=== PATIENT | male | born 1980 | race Caucasian/White ===

== ENCOUNTER 2018-07-22 17:23 | Inpatient (IN) | payer OTHER ==
[2018-07-22] MEDS ORDERED: LIDOCAINE 1% INJ-PF (10 MG/ML) 30 ML SDV INJ ONE (20:58)
[2018-07-22] MEDS ORDERED: NORMAL SALINE 1000 ML 1,000 ML IV ONE (21:00)
[2018-07-22 21:34] LABS: HEMATOCRIT 36.8 % (37.9-51.0); HEMOGLOBIN 12.8 g/dL (13.5-17.0); MEAN CORPUSCULAR HEMOGLOBIN 28.4 pg (27.0-33.4); MEAN CORPUSCULAR HGB CONC 34.8 g/dL (32.0-36.0); MEAN CORPUSCULAR VOLUME 82 fl (80-97); WHITE BLOOD COUNT 18.2 10^3/uL (4.0-10.5)
[2018-07-22 21:48] LABS: ALANINE AMINOTRANSFERASE 36 U/L (21-72); ALBUMIN 3.8 g/dL (3.5-5.0); ALKALINE PHOSPHATASE 165 U/L (38-126); ANION GAP 16 (5-19); ASPARTATE AMINO TRANSFERASE 33 U/L (17-59); BILIRUBIN,DIRECT 0.4 mg/dL (0.0-0.4); BILIRUBIN,TOTAL 0.8 mg/dL (0.2-1.3); BLOOD UREA NITROGEN 8 mg/dL (7-20); CALCIUM 9.2 mg/dL (8.4-10.2); CARBON DIOXIDE 21 mmol/L (22-30); CHLORIDE 92 mmol/L (98-107); GLUCOSE 329 mg/dL (75-110); POTASSIUM 3.8 mmol/L (3.6-5.0); SODIUM 129.1 mmol/L (137-145); TOTAL PROTEIN 7.6 g/dL (6.3-8.2)
[2018-07-22 21:51] LABS: ABSOLUTE LYMPHOCYTES# (MANUAL) 1.6 10^3/uL (0.5-4.7); ABSOLUTE MONOCYTES # (MANUAL) 1.6 10^3/uL (0.1-1.4); ABSOLUTE NEUTROPHILS# (MANUAL) 14.9 10^3/uL (1.7-8.2); BAND NEUTROPHILS % (MANUAL) 3 % (3-5); BASOPHILS % (MANUAL) 0 % (0-2); EOSINOPHILS % (MANUAL) 0 % (0-6); LYMPHOCYTES % (MANUAL) 9 % (13-45); MONOCYTES % (MANUAL) 9 % (3-13); SEGMENTED NEUTROPHILS % (MAN) 79 % (42-78); TOTAL CELLS COUNTED 100
[2018-07-22 21:53] LABS: ANISOCYTOSIS SLIGHT; PLATELET CLUMPS PRESENT; POIKILOCYTOSIS SLIGHT; POLYCHROMASIA SLIGHT; TEAR DROP CELLS SLIGHT; TOXIC VACUOLATION PRESENT
[2018-07-22 21:54] LABS: PLATELET COMMENT ADEQUATE; PLATELET COUNT 345 10^3/uL (150-450)
[2018-07-22] MEDS ORDERED: VANCOMYCIN HCL INJ 1000 MG VIAL IV ONE (22:00)
[2018-07-22] MEDS ORDERED: DEXTROSE 50%-WATER 25 GM/50 ML DISP.SYRIN IV PRN ×2 (22:02)
[2018-07-22] MEDS ORDERED: GLUCAGON,HUMAN RECOMB 1 MG INJ IM PRN (22:02)
[2018-07-22] MEDS ORDERED: DEXTROSE 40% GEL 15 GM TUBE PO PRN ×2 (22:02)
[2018-07-22] MEDS ORDERED: KETOROLAC TROMETHAMINE INJ/PF 30 MG/1 ML SDV IV PRN (22:03)
[2018-07-22] MEDS ORDERED: HYDRALAZINE HCL INJ/PF 20 MG/1 ML SDV IV PRN (22:03)
[2018-07-22] MEDS ORDERED: ACETAMINOPHEN 325 MG TABLET PO PRN (22:03)
[2018-07-22] MEDS ORDERED: VANCOMYCIN HCL 1,500 MG in DEXTROSE 5%-WATER 250 ML IV ONE (22:05)
--- NOTE | 2018-07-22 22:05 | ER Document Report ---
ED General - General Chief Complaint: Abscess Stated Complaint: ABSCESS ON BACK Time Seen by Provider: 07/22/18 20:57 Mode of Arrival: Ambulatory Information source: Patient TRAVEL OUTSIDE OF THE [place] IN LAST 30 DAYS: No - HPI Patient complains to provider of: Complicated back abscess Onset: Other - 3 to 4 days Onset/Duration: Gradual, Persistent Quality of pain: Sharp Severity: Severe Pain Level: 5 Associated symptoms: denies: Chills, Fever, Nausea, Vomiting Exacerbated by: Denies Relieved by: Denies Similar symptoms previously: No Recently seen / treated by doctor: No Notes: 37-year-old male with history of obesity and type 2 diabetes coming in [facility] to have incision and drainage of an abscess to the upper part of his back. He states the abscess started developing 2 to 3 days ago. He does not comment about any history of fevers or chills nausea or vomiting. He states his sugars have been running between the mid 100s to the mid 200s. - Related Data Allergies/Adverse Reactions: No Known Allergies Allergy (Unverified 07/22/18 17:29) Past Medical History - General Information source: Patient - Social History Smoking Status: Unknown if Ever Smoked Family History: Reviewed & Not Pertinent Patient has suicidal ideation: No Patient has homicidal ideation: No Renal/ Medical History: Denies: Hx Peritoneal Dialysis Review of Systems - Review of Systems Notes: Constitutional: No fevers. No chills. EENT: No eye redness. No eye pain. No ear pain. No sore throat. Cardiovascular: No chest pain. No palpitations. Respiratory: No cough. No shortness of breath. No respiratory distress. Gastrointestinal: No abdominal pain. No nausea, vomiting, or diarrhea. Genitourinary: Atraumatic. No lesions. No pain. No discharge. Musculoskeletal: Atraumatic. No swelling. No deformities. Skin: Positive for large abscess to the upper back Lymphatic: No swollen lymph nodes. Neurologic: No headache. No syncope. Psychiatric: No suicidal or homicidal ideation. Physical Exam - Vital signs Vitals: Temp Pulse Resp BP Pulse Ox 98.1 F 137 H 18 137/82 H 97 07/22/18 17:39 07/22/18 17:39 07/22/18 17:39 07/22/18 17:39 07/22/18 17:39 - Notes Notes: General: Well-developed, well-nourished. In no acute distress. Non-toxic appearing. Cardiac: Well-perfused. Regular rate and rhythm. No murmurs, rubs, or gallops. Pulmonary: No respiratory distress. No cyanosis. Bilateral lung fiels are clear to auscultation. Abdominal: Non-distended. Non-rigid. Bowels sounds are present in all four quadrants. No guarding or rebound. HEENT: Head is atraumatic. Conjunctivae not reddened. No tearing. PERRL. EOMI. Orbits atraumatic. No periorbital swelling or erythema. Oropharynx is without erythema, swelling, or exudates. Neck: Supple. No adenopathy. No meningismus. Dermatologic: 18 cm x 15 cm abscess to the upper back to the base of the neck. Extensive induration. Actively draining purulent foul-smelling drainage. Chest: Atraumatic. No chest wall tenderness to palpation. Musculoskeletal: Moves all extremities well. No range of motion deficits. no muscular or joint tenderness. No paraspinal muscle tenderness. no midline spinal tenderness or step-off. Genitourinary: Examination deferred Neurologic: No gross neurologic deficits. Psychiatric: Normal mood. Course - Re-evaluation Re-evalutation: 07/22/18 22:09 Incision and drainage procedure was done per note. The abscess is just too extensive to drain in the emergency department. General surgery was consulted. He agreed to the admission as long as medicine manage the patient's chronic medical problems. - Vital Signs Vital signs: Temp Pulse Resp BP Pulse Ox 98.1 F 118 H 18 137/82 H 97 07/22/18 17:39 07/22/18 21:00 07/22/18 17:39 07/22/18 17:39 07/22/18 17:39 - Laboratory Result Diagrams: 07/22/18 21:18 07/22/18 21:18 Laboratory results interpreted by me: 07/22/18 07/22/18 21:18 21:18 WBC 18.2 H Hgb 12.8 L Hct 36.8 L Seg Neuts % (Manual) 79 H Lymphocytes % (Manual) 9 L Abs Neuts (Manual) 14.9 H Abs Monocytes (Manual) 1.6 H Sodium 129.1 L Chloride 92 L Carbon Dioxide 21 L Glucose 329 H Alkaline Phosphatase 165 H Procedures - Incision and Drainage Upper Back Time completed: 22:10 Type: Complex Anesthetic type: 1% Lidocaine mL's of anesthetic: 10 Blade size: 11 I&D procedure: Shurclens applied Incision Method: Incision made by scalpel Amount/type of drainage: greater than 50 cc jorge purulent drainage. Notes: 07/22/18 22:11 Tolerated procedure well Discharge - Discharge Clinical Impression: Complicated abscess, Hyperglycemia, Hyponatremia Condition: Stable Disposition: ADMITTED INPATIENT Admitting Provider: Surgicalist - DR GARCIA Unit Admitted: Surgical Floor
[2018-07-22] MEDS ORDERED: VANCOMYCIN HCL 0 MG in DEXTROSE 5%-WATER 250 ML IV NR (22:15)
[2018-07-22] MEDS ORDERED: VANCOMYCIN HCL INJ 1000 MG VIAL IV PRN (22:26)
[2018-07-22] MEDS ORDERED: VANCOMYCIN HCL 2,000 MG in DEXTROSE 5%-WATER 500 ML IV ONE (22:30)
--- NOTE | 2018-07-22 22:35 | PDOC H&P ---
History of Present Illness Patient complains of: Upper back pain and drainage History of Present Illness: ALEENA JOHNSON is a 37 year old male with diabetes who noticed swelling with redness at his upper mid back about 5 days ago. The following day it had purulent drainage. Patient has been experiencing some chills but no fever. He was due to be seen at the [facility] but with the condition worsening he came into the ER tonight. He denies any prior history of problems in this area. Patient underwent an incision and drainage in the ER by the ER physician with drainage of copious amount of pus. ER physician was concerned that the infectious process was deeper and that he could not safely debride in the ER. Past Medical History Endocrine Medical History: Reports: Diabetes Mellitus Type 2 Past Surgical History Past Surgical History: Reports: None Social History Smoking Status: Never Smoker Frequency of Alcohol Use: Rare Hx Recreational Drug Use: No Family History Family History: Reviewed & Not Pertinent Parental Family History Reviewed: Yes Children Family History Reviewed: Yes Sibling(s) Family History Reviewed.: Yes Medication/Allergy Allergies/Adverse Reactions: No Known Allergies Allergy (Unverified 07/22/18 17:29) Physical Exam Vital Signs: Temp Pulse Resp BP Pulse Ox 98.1 F 118 H 18 137/82 H 97 07/22/18 17:39 07/22/18 21:00 07/22/18 17:39 07/22/18 17:39 07/22/18 17:39 Intake & Output 07/21/18 07/22/18 07/23/18 06:59 06:59 06:59 Weight 119.3 kg General appearance: PRESENT: no acute distress, cooperative Eye exam: PRESENT: conjunctiva pink Neck exam: PRESENT: other - Supple with no tenderness and no masses Respiratory exam: PRESENT: clear to auscultation priscilla Cardiovascular exam: PRESENT: tachycardia GI/Abdominal exam: PRESENT: other - Soft, nondistended nontender to palpation. Neurological exam: PRESENT: alert, awake Psychiatric exam: PRESENT: appropriate affect Skin exam: PRESENT: other - Upper back with right red erythema and induration with a surgical incision which drainage of purulent fluid. The area of the erythema measuring about 12 cm wide. Results Laboratory Results: 07/22/18 21:18 07/22/18 21:18 07/22/18 07/22/18 21: 21:18 WBC 18.2 H RBC 4.50 Hgb 12.8 L Hct 36.8 L MCV 82 MCH 28.4 MCHC 34.8 RDW 14.0 Plt Count 345 Seg Neutrophils % Not Reportable Lymphocytes % Not Reportable Monocytes % Not Reportable Eosinophils % Not Reportable Basophils % Not Reportable Absolute Neutrophils Not Reportable Absolute Lymphocytes Not Reportable Absolute Monocytes Not Reportable Absolute Eosinophils Not Reportable Absolute Basophils Not Reportable Sodium 129.1 L Potassium 3.8 Chloride 92 L Carbon Dioxide 21 L Anion Gap 16 BUN 8 Creatinine 0.69 Est GFR ( Amer) > 60 Est GFR (Non-Af Amer) > 60 Glucose 329 H Calcium 9.2 Total Bilirubin 0.8 AST 33 ALT 36 Alkaline Phosphatase 165 H Total Protein 7.6 Albumin 3.8 Assessment & Plan - Diagnosis (1) Complicated abscess Is this a current diagnosis for this admission?: Yes Plan: Patient has undergone initial drainage in the ER with drainage of copious amount of pus as per the ER physician. The area would benefit from an excisional debridement in the operating room. This may very well be an infected giant sebaceous cyst. The bright color suggest MRSA. We will plan to admit the patient placed on IV antibiotics and will plan excisional debridement in the operating room tomorrow morning. Will consult hospitalist to assist in management of this diabetic patient.
[2018-07-22] MEDS ORDERED: ERTAPENEM SODIUM INJ 1 GM VIAL IV PRN (22:41)
[2018-07-22] MEDS ORDERED: ERTAPENEM SODIUM 1 GM in NORMAL SALINE 50 ML IV ONE (23:00)
--- NOTE | 2018-07-23 05:15 | PDOC CONSULTATION ---
Consultation Consult Date: 07/22/18 Attending physician:: NEREIDA GARCIA Consult reason:: Diabetes, History of Present Illness Admission Date/PCP: 07/22/18 22:27 Patient complains of: Fever, abscess History of Present Illness: ALEENA JOHNSON is a 37 year old male with a past medical history of morbid obesity and insulin-dependent diabetes presents with 3 days of swelling and pain to the upper back. In the emergency room he is found to have a large 19 x 13 cm fluctuant abscess requiring I&D at bedside but requires extensive OR debridement. He is referred to the surgical list for admission. Patient admits previous abscess to the posterior neck greater than 1 year ago fully resolved. He denies recent antibiotic use. He is unaware of his last A1c but Accu-Cheks from home average 150. Patient denies recent change of medication. Past Medical History Cardiac Medical History: Reports: None Pulmonary Medical History: Reports: None Endocrine Medical History: Reports: Diabetes Mellitus Type 2 Past Surgical History Past Surgical History: Reports: None Social History Information Source: Patient, [facility] Smoking Status: Never Smoker Frequency of Alcohol Use: Rare Hx Recreational Drug Use: No - Advance Directive Resuscitation Status: Full Code Family History Family History: Hypertension Parental Family History Reviewed: Yes Children Family History Reviewed: Yes Sibling(s) Family History Reviewed.: Yes Medication/Allergy Allergies/Adverse Reactions: No Known Allergies Allergy (Unverified 07/22/18 17:29) Review of Systems Constitutional: ABSENT: chills, fever(s), headache(s), weight gain, weight loss Eyes: ABSENT: visual disturbances Ears: ABSENT: hearing changes Cardiovascular: ABSENT: chest pain, dyspnea on exertion, edema, orthropnea, palpitations Respiratory: ABSENT: cough, hemoptysis Gastrointestinal: ABSENT: abdominal pain, constipation, diarrhea, hematemesis, hematochezia, nausea, vomiting Genitourinary: ABSENT: dysuria, hematuria Musculoskeletal: ABSENT: joint swelling Integumentary: ABSENT: rash, wounds Neurological: ABSENT: abnormal gait, abnormal speech, confusion, dizziness, focal weakness, syncope Psychiatric: ABSENT: anxiety, depression, homidical ideation, suicidal ideation Endocrine: ABSENT: cold intolerance, heat intolerance, polydipsia, polyuria Hematologic/Lymphatic: ABSENT: easy bleeding, easy bruising Physical Exam Vital Signs: Temp Pulse Resp BP Pulse Ox 98.3 F 117 H 20 132/74 H 100 07/23/18 01:31 07/23/18 01:31 07/23/18 01:31 07/23/18 01:31 07/23/18 01:31 Intake & Output 07/21/18 07/22/18 07/23/18 11:59 11:59 11:59 Intake Total 1546 Balance 1546 Weight 119.3 kg General appearance: PRESENT: cooperative, mild distress, morbidly obese. ABSENT: disheveled Head exam: PRESENT: atraumatic, normocephalic Eye exam: PRESENT: conjunctiva pink, EOMI, PERRLA. ABSENT: scleral icterus Ear exam: PRESENT: normal external ear exam Mouth exam: PRESENT: moist, tongue midline Neck exam: ABSENT: carotid bruit, JVD, lymphadenopathy, thyromegaly Respiratory exam: PRESENT: clear to auscultation priscilla. ABSENT: rales, rhonchi, wheezes Cardiovascular exam: PRESENT: RRR. ABSENT: diastolic murmur, rubs, systolic murmur Pulses: PRESENT: normal dorsalis pedis pul Vascular exam: PRESENT: normal capillary refill GI/Abdominal exam: PRESENT: normal bowel sounds, soft. ABSENT: distended, guarding, mass, organolmegaly, rebound, tenderness Rectal exam: PRESENT: deferred Extremities exam: PRESENT: full ROM. ABSENT: calf tenderness, clubbing, pedal edema Neurological exam: PRESENT: alert, awake, oriented to person, oriented to place, oriented to time, oriented to situation, CN II-XII grossly intact. ABSENT: motor sensory deficit Psychiatric exam: PRESENT: appropriate affect, normal mood. ABSENT: homicidal ideation, suicidal ideation Skin exam: PRESENT: dry, intact, warm. ABSENT: cyanosis, rash Adult Front & Back Image: 1 - 19 x 13 cm abscess with proximal cellulitis Results Laboratory Results: 07/22/18 21:18 07/22/18 21:18 07/22/18 07/22/18 21:18 21:18 WBC 18.2 H RBC 4.50 Hgb 12.8 L Hct 36.8 L MCV 82 MCH 28.4 MCHC 34.8 RDW 14.0 Plt Count 345 Seg Neutrophils % Not Reportable Lymphocytes % Not Reportable Monocytes % Not Reportable Eosinophils % Not Reportable Basophils % Not Reportable Absolute Neutrophils Not Reportable Absolute Lymphocytes Not Reportable Absolute Monocytes Not Reportable Absolute Eosinophils Not Reportable Absolute Basophils Not Reportable Sodium 129.1 L Potassium 3.8 Chloride 92 L Carbon Dioxide 21 L Anion Gap 16 BUN 8 Creatinine 0.69 Est GFR ( Amer) > 60 Est GFR (Non-Af Amer) > 60 Glucose 329 H Calcium 9.2 Total Bilirubin 0.8 AST 33 ALT 36 Alkaline Phosphatase 165 H Total Protein 7.6 Albumin 3.8 Assessment and Plan - Diagnosis (1) Complicated abscess Is this a current diagnosis for this admission?: Yes Plan: Surgical admission for debridement, high risk for MRSA vancomycin initiated. Follow-up CBC, blood and wound culture (2) Diabetes Is this a current diagnosis for this admission?: Yes Plan: Resume outpatient regiment with Humalog sliding scale, follow-up A1c (3) Hyponatremia Is this a current diagnosis for this admission?: Yes Plan: Most likely secondary to pain, follow-up chemistry (4) Morbid obesity Is this a current diagnosis for this admission?: Yes Plan: Morbid obesity will evaluate for metabolic cause with evaluation of thyroid function and dietitian consultation - Time Time Spent with patient: 25-34 minutes - Inpatient Certification Medical Necessity: Need Close Monitoring Due to Risk of Patient Decompensation
[2018-07-23] MEDS ORDERED: VANCOMYCIN HCL 2,000 MG in DEXTROSE 5%-WATER 500 ML IV SCH (06:00)
[2018-07-23 06:23] LABS: HEMATOCRIT 31.8 % (37.9-51.0); HEMOGLOBIN 10.9 g/dL (13.5-17.0); MEAN CORPUSCULAR HEMOGLOBIN 28.4 pg (27.0-33.4); MEAN CORPUSCULAR HGB CONC 34.3 g/dL (32.0-36.0); MEAN CORPUSCULAR VOLUME 83 fl (80-97); PLATELET COUNT 237 10^3/uL (150-450); RED BLOOD COUNT 3.84 10^6/uL (4.35-5.55); RED CELL DISTRIBUTION WIDTH 13.9 % (11.5-14.0); WHITE BLOOD COUNT 11.6 10^3/uL (4.0-10.5)
[2018-07-23] MEDS: HEPARIN SOD (PORCINE) 5,000 UNIT/ML 1 ML SYRINGE SUBCUT SCH ×3 (06:36→22:05)
[2018-07-23 06:42] LABS: ANION GAP 12 (5-19); BLOOD UREA NITROGEN 8 mg/dL (7-20); CALCIUM 8.3 mg/dL (8.4-10.2); CARBON DIOXIDE 22 mmol/L (22-30); CHLORIDE 101 mmol/L (98-107); GLUCOSE 257 mg/dL (75-110); SODIUM 134.8 mmol/L (137-145)
[2018-07-23] MEDS: INSULIN LISPRO 100 UNIT/ML 3 ML VIAL SUBCUT SCH ×3 (09:18→17:54)
[2018-07-23] MEDS: NORMAL SALINE 1000 ML 1,000 ML IV PRN ×2 (09:35→10:43)
[2018-07-23] MEDS: VANCOMYCIN HCL 1,500 MG in DEXTROSE 5%-WATER 250 ML IV SCH ×3 (09:36→22:18)
[2018-07-23] MEDS ORDERED: MORPHINE SULFATE 10 MG/ML INJ ONE ×2 (10:17→13:54)
[2018-07-23] MEDS ORDERED: PROPOFOL INJ 200 MG/20 ML VIAL IV ONE ×2 (10:17→12:01)
[2018-07-23] MEDS ORDERED: ONDANSETRON HCL INJ/PF 4 MG/2 ML SDV ONE (10:17)
[2018-07-23] MEDS ORDERED: FENTANYL CITRATE INJ/PF 100 MCG/2 ML AMPUL ONE (10:17)
[2018-07-23] MEDS ORDERED: MIDAZOLAM 2 MG/2 ML INJ ONE (10:17)
[2018-07-23] MEDS ORDERED: LIDOCAINE 1% INJ-PF (10 MG/ML) 30 ML SDV ONE (11:04)
[2018-07-23] MEDS ORDERED: LIDOCAINE 0.5% INJ-PF (5 MG/ML) 50 ML SDV ONE (11:42)
[2018-07-23] MEDS ORDERED: FENTANYL CITRATE INJ/PF 100 MCG/2 ML AMPUL IV PRN ×3 (11:47)
[2018-07-23] MEDS ORDERED: DIPHENHYDRAMINE HCL 50 MG/ML VIAL IV PRN (11:47)
[2018-07-23] MEDS ORDERED: PROMETHAZINE HCL INJ 25 MG/1 ML VIAL IV PRN (11:47)
[2018-07-23] MEDS ORDERED: MORPHINE SULFATE 10 MG/ML INJ IV PRN (13:25)
[2018-07-23] MEDS ORDERED: ONDANSETRON HCL INJ/PF 4 MG/2 ML SDV IV PRN (13:26)
[2018-07-23] MEDS ORDERED: DEXTROSE 50%-WATER SYRINGE 12.5 GM/25 ML DOSE IV PRN (13:30)
[2018-07-23] MEDS ORDERED: DEXTROSE 40% GEL 15 GM TUBE PO PRN (13:30)
[2018-07-23] MEDS ORDERED: DEXTROSE 50%-WATER SYRINGE 25 GM/50 ML DOSE IV PRN (13:30)
[2018-07-23] MEDS ORDERED: GLUCAGON,HUMAN RECOMB 1 MG INJ IM PRN (13:30)
[2018-07-23] MEDS ORDERED: DEXTROSE 40% GEL 15 GM TUBE X 2 PO PRN (13:30)
--- NOTE | 2018-07-23 15:19 | OPERATIVE REPORT E ---
Operative Report NAME: ALEENA JOHNSON : 1980 AGE: 37Y DATE OF SURGERY: 07/23/2018 ROOM: 425 PREOPERATIVE DIAGNOSIS: ABSCESS OF THE UPPER BACK. POSTOPERATIVE DIAGNOSIS: ABSCESS OF THE UPPER BACK. OPERATION: INCISION AND DRAINAGE AND DEBRIDEMENT OF 9 CM X 6 CM WIDE X 5.5 CM DEEP DOWN TO THE FASCIA. SURGEON: ОЛЕГ FISHER M.D. ANESTHESIA: Local, MAC. INDICATION: This is a 37-year-old male noted to have pains along the upper back about a week ago. This gradually developed into an abscess and was drained last night in the ER. Unfortunately, the abscess cavity appears to be tunneling and needed to be done further in the OR. PROCEDURE: After adequate IV sedation, the patient was placed in the left lateral decubitus position and the back around the abscess site was then prepped and draped in the usual sterile fashion. Local anesthesia infiltrated around the abscess cavity, where it was noted to be tunneling. The area was subsequently excised roughly measuring about 9 cm long x 6 cm wide x 5.5 cm deep, down to the fascia. Part of the fascia was excised. The tunneling was debrided to the point where no more abscess could be squeezed out along the cavity site. The area was subsequently pulse lavaged. Hemostasis obtained with cautery. The area was subsequently packed with Kerlix soaked in Betadine. 4 x 4 and ABD pad were used over the Kerlix. The patient tolerated the procedure well. Needle, instrument and sponge count were all correct, and estimated blood loss about 40 mL. The patient was brought to the recovery room in satisfactory condition. DICTATING PHYSICIAN: ОЛЕГ FISHER M.D. [id number] PHY#: [id number] ID: [id number] JOB#: [id number] ACCT: [id number] cc:ОЛЕГ FISHER M.D. >
[2018-07-23] MEDS: INSULIN REG, HUMAN 100 UNIT/ML 3 ML VIAL (PYX) SUBCUT SCH ×2 (17:59→22:09)
[2018-07-23] MEDS: GLIPIZIDE 5 MG TABLET PO SCH (18:00)
[2018-07-23] MEDS: KETOROLAC TROMETHAMINE INJ/PF 30 MG/1 ML SDV IV SCH ×2 (18:00→23:16)
[2018-07-23] MEDS: ERTAPENEM SODIUM 1 GM in NORMAL SALINE 50 ML IV SCH (22:05)
[2018-07-24] MEDS: NORMAL SALINE 1000 ML 1,000 ML IV PRN ×3 (04:00→21:39)
[2018-07-24] MEDS: VANCOMYCIN HCL 1,500 MG in DEXTROSE 5%-WATER 250 ML IV SCH ×2 (04:00→09:33)
[2018-07-24] MEDS: HEPARIN SOD (PORCINE) 5,000 UNIT/ML 1 ML SYRINGE SUBCUT SCH ×3 (05:19→21:42)
[2018-07-24] MEDS: KETOROLAC TROMETHAMINE INJ/PF 30 MG/1 ML SDV IV SCH ×4 (05:19→23:33)
[2018-07-24 05:58] LABS: ABSOLUTE EOSINOPHILS # (AUTO) 0.2 10^3/uL (0.0-0.6); ABSOLUTE LYMPHOCYTES (AUTO) 0.8 10^3/uL (0.5-4.7); ABSOLUTE MONOCYTES (AUTO) 0.6 10^3/uL (0.1-1.4); ABSOLUTE NEUT (AUTO) 5.4 10^3/uL (1.7-8.2); BASOPHILS % (AUTO) 0.3 % (0-2); EOSINOPHILS % (AUTO) 2.5 % (0-6); HEMATOCRIT 28.9 % (37.9-51.0); LYMPHOCYTES % (AUTO) 12.2 % (13-45); MEAN CORPUSCULAR HEMOGLOBIN 28.3 pg (27.0-33.4); MEAN CORPUSCULAR HGB CONC 34.6 g/dL (32.0-36.0); MEAN CORPUSCULAR VOLUME 82 fl (80-97); PLATELET COUNT 192 10^3/uL (150-450); RED BLOOD COUNT 3.54 10^6/uL (4.35-5.55); RED CELL DISTRIBUTION WIDTH 13.8 % (11.5-14.0); TOTAL CELLS COUNTED % (AUTO) 100 %
[2018-07-24 06:24] LABS: ANION GAP 6 (5-19); BLOOD UREA NITROGEN 13 mg/dL (7-20); CALCIUM 8.1 mg/dL (8.4-10.2); CARBON DIOXIDE 25 mmol/L (22-30); CHLORIDE 104 mmol/L (98-107); GLUCOSE 167 mg/dL (75-110); POTASSIUM 3.8 mmol/L (3.6-5.0); SODIUM 135.3 mmol/L (137-145)
[2018-07-24] MEDS: INSULIN REG, HUMAN 100 UNIT/ML 3 ML VIAL (PYX) SUBCUT SCH ×4 (07:48→21:30)
[2018-07-24 09:26] LABS: VANCOMYCIN,TROUGH 23.8 ug/mL (5.0-20.0)
[2018-07-24] MEDS: LISINOPRIL 5 MG TABLET PO SCH (09:32)
[2018-07-24] MEDS: GLIPIZIDE 5 MG TABLET PO SCH ×2 (09:32→17:04)
--- NOTE | 2018-07-24 09:50 | PDOC PROGRESS REPORT ---
Subjective Progress Note for:: 07/23/18 Subjective:: Patient seen resting in bed. He is awake, alert, oriented x3. He denies any chest pain, shortness of breath or dyspnea. He denies any nausea, vomiting or abdominal pain. He states pain in his back abscess was is improved since surgery. Reason For Visit: BACK ABSCESS Physical Exam Vital Signs: Temp Pulse Resp BP Pulse Ox 97.9 F 107 H 24 H 121/71 100 07/23/18 14:30 07/23/18 14:30 07/23/18 14:30 07/23/18 14:30 07/23/18 14:30 Intake & Output 07/22/18 07/23/18 07/24/18 06:59 06:59 06:59 Intake Total 1550 3050 Balance 1550 3050 Weight 119.3 kg 120.8 kg General appearance: PRESENT: no acute distress, morbidly obese, well-developed, well-nourished Head exam: PRESENT: atraumatic, normocephalic Eye exam: PRESENT: conjunctiva pink, EOMI, PERRLA. ABSENT: scleral icterus Ear exam: PRESENT: normal external ear exam Mouth exam: PRESENT: moist, tongue midline Teeth exam: PRESENT: poor dentation Neck exam: ABSENT: carotid bruit, JVD, lymphadenopathy, thyromegaly Respiratory exam: PRESENT: clear to auscultation priscilla. ABSENT: rales, rhonchi, wheezes Results Laboratory Results: 07/23/18 06:10 07/23/18 06:10 07/22/18 07/22/18 07/23/18 21:18 21:18 06:10 WBC 18.2 H 11.6 H RBC 4.50 3.84 L Hgb 12.8 L 10.9 L Hct 36.8 L 31.8 L MCV 82 83 MCH 28.4 28.4 MCHC 34.8 34.3 RDW 14.0 13.9 Plt Count 345 237 Seg Neutrophils % Not Reportable Lymphocytes % Not Reportable Monocytes % Not Reportable Eosinophils % Not Reportable Basophils % Not Reportable Absolute Neutrophils Not Reportable Absolute Lymphocytes Not Reportable Absolute Monocytes Not Reportable Absolute Eosinophils Not Reportable Absolute Basophils Not Reportable Sodium 129.1 L Potassium 3.8 Chloride 92 L Carbon Dioxide 21 L Anion Gap 16 BUN 8 Creatinine 0.69 Est GFR ( Amer) > 60 Est GFR (Non-Af Amer) > 60 Glucose 329 H Calcium 9.2 Total Bilirubin 0.8 AST 33 ALT 36 Alkaline Phosphatase 165 H Total Protein 7.6 Albumin 3.8 07/23/18 06:10 WBC RBC Hgb Hct MCV MCH MCHC RDW Plt Count Seg Neutrophils % Lymphocytes % Monocytes % Eosinophils % Basophils % Absolute Neutrophils Absolute Lymphocytes Absolute Monocytes Absolute Eosinophils Absolute Basophils Sodium 134.8 L Potassium 4.0 Chloride 101 Carbon Dioxide 22 Anion Gap 12 BUN 8 Creatinine 0.67 Est GFR ( Amer) > 60 Est GFR (Non-Af Amer) > 60 Glucose 257 H Calcium 8.3 L Total Bilirubin AST ALT Alkaline Phosphatase Total Protein Albumin Assessment and Plan - Diagnosis (1) Complicated abscess Is this a current diagnosis for this admission?: Yes Plan: Surgical admission for debridement, high risk for MRSA vancomycin initiated. Follow-up CBC, blood and wound culture (2) Diabetes Is this a current diagnosis for this admission?: Yes Plan: Resume outpatient regiment with Humalog sliding scale, follow-up A1c (3) Hyponatremia Is this a current diagnosis for this admission?: Yes Plan: Most likely secondary to pain, follow-up chemistry (4) Morbid obesity Is this a current diagnosis for this admission?: Yes Plan: Morbid obesity will evaluate for metabolic cause with evaluation of thyroid function and dietitian consultation - Time Time Spent with patient: 25-34 minutes Total Critical Time (Minutes): 30 Medications reviewed and adjusted accordingly: Yes Anticipated discharge: Home
--- NOTE | 2018-07-24 09:54 | PDOC PROGRESS REPORT ---
Subjective Progress Note for:: 07/24/18 Subjective:: Patient seen resting in bed. He is awake, alert, oriented x3. He denies any chest pain, shortness of breath or dyspnea. He denies any nausea, vomiting or abdominal pain. He states pain in his back abscess was is improved since surgery. Reason For Visit: BACK ABSCESS Physical Exam Vital Signs: Temp Pulse Resp BP Pulse Ox 97.4 F 87 19 110/60 99 07/24/18 08:00 07/24/18 08:00 07/24/18 08:00 07/24/18 08:00 07/24/18 08:00 Intake & Output 07/23/18 07/24/18 07/25/18 06:59 06:59 06:59 Intake Total 1550 5627 Balance 1550 5627 Weight 119.3 kg 122.2 kg General appearance: PRESENT: no acute distress, morbidly obese, well-developed, well-nourished Head exam: PRESENT: atraumatic, normocephalic Eye exam: PRESENT: conjunctiva pink, EOMI, PERRLA. ABSENT: scleral icterus Ear exam: PRESENT: normal external ear exam Mouth exam: PRESENT: moist, tongue midline Neck exam: ABSENT: carotid bruit, JVD, lymphadenopathy, thyromegaly Respiratory exam: PRESENT: clear to auscultation priscilla. ABSENT: rales, rhonchi, wheezes Cardiovascular exam: PRESENT: RRR. ABSENT: diastolic murmur, rubs, systolic murmur Pulses: PRESENT: normal dorsalis pedis pul Vascular exam: PRESENT: normal capillary refill GI/Abdominal exam: PRESENT: normal bowel sounds, soft. ABSENT: distended, guarding, mass, organolmegaly, rebound, tenderness Rectal exam: PRESENT: deferred Neurological exam: PRESENT: alert, awake, oriented to person, oriented to place, oriented to time, oriented to situation, CN II-XII grossly intact. ABSENT: motor sensory deficit Psychiatric exam: PRESENT: appropriate affect, normal mood. ABSENT: homicidal ideation, suicidal ideation Skin exam: PRESENT: dry, intact, warm. ABSENT: cyanosis, rash Results Laboratory Results: 07/24/18 05:23 07/24/18 05:23 07/24/18 07/24/18 05:23 05:23 WBC 7.0 RBC 3.54 L Hgb 10.0 L Hct 28.9 L MCV 82 MCH 28.3 MCHC 34.6 RDW 13.8 Plt Count 192 Seg Neutrophils % 77.0 Lymphocytes % 12.2 L Monocytes % 8.0 Eosinophils % 2.5 Basophils % 0.3 Absolute Neutrophils 5.4 Absolute Lymphocytes 0.8 Absolute Monocytes 0.6 Absolute Eosinophils 0.2 Absolute Basophils 0.0 Sodium 135.3 L Potassium 3.8 Chloride 104 Carbon Dioxide 25 Anion Gap 6 BUN 13 Creatinine 0.66 Est GFR ( Amer) > 60 Est GFR (Non-Af Amer) > 60 Glucose 167 H Calcium 8.1 L 07/22/18 21:30 Back - Abscess Gram Stain - Final 07/22/18 21:30 Back - Abscess Wound Culture - Final Staphylococcus Aureus No Anaerobic Organisms Assessment and Plan - Diagnosis (1) Complicated abscess Is this a current diagnosis for this admission?: Yes Plan: Surgical admission for debridement, high risk for MRSA vancomycin initiated. Follow-up CBC, blood and wound culture (2) Diabetes Is this a current diagnosis for this admission?: Yes Plan: Resume outpatient regiment with Humalog sliding scale, follow-up A1c (3) Hyponatremia Is this a current diagnosis for this admission?: Yes Plan: Most likely secondary to pain, follow-up chemistry (4) Morbid obesity Is this a current diagnosis for this admission?: Yes Plan: Morbid obesity will evaluate for metabolic cause with evaluation of thyroid function and dietitian consultation - Time Time Spent with patient: 25-34 minutes Total Critical Time (Minutes): 30 Medications reviewed and adjusted accordingly: Yes Within: within 48 hours - Inpatient Certification Based on my medical assessment, after consideration of the patient's comorbidities, presenting symptoms, or acuity I expect that the services needed warrant INPATIENT care.: Yes I certify that my determination is in accordance with my understanding of Medicare's requirements for reasonable and necessary INPATIENT services [42 CFR 412.3e].: Yes Medical Necessity: Need for IV Antibiotics, Need for Surgery
[2018-07-24] MEDS ORDERED: (PENDING PHARMACY ID) (Lisinopril [Zestril] 2.5 MG) PO SCH (10:00)
[2018-07-24] MEDS: VANCOMYCIN HCL 1,000 MG in DEXTROSE 5%-WATER 250 ML IV SCH ×2 (15:15→21:41)
[2018-07-24] MEDS: OXYCODONE-ACETAMINOPHEN 5-325 MG TABLET PO PRN (19:27)
--- NOTE | 2018-07-24 21:35 | PDOC PROGRESS REPORT ---
Subjective Progress Note for:: 07/24/18 Subjective:: less pains op site Reason For Visit: BACK ABSCESS Physical Exam Vital Signs: Temp Pulse Resp BP Pulse Ox 97.9 F 98 16 99/57 L 100 07/24/18 19:07 07/24/18 19:07 07/24/18 19:07 07/24/18 19:07 07/24/18 19:07 Intake & Output 07/23/18 07/24/18 07/25/18 06:59 06:59 06:59 Intake Total 1550 5627 2725 Balance 1550 5627 2725 Weight 119.3 kg 122.2 kg Exam: Dressings changed. Still with some induration and small amount of purulent discharge on pressing around site. Results Laboratory Results: 07/24/18 05:23 07/24/18 05:23 07/24/18 07/24/18 05:23 05:23 WBC 7.0 RBC 3.54 L Hgb 10.0 L Hct 28.9 L MCV 82 MCH 28.3 MCHC 34.6 RDW 13.8 Plt Count 192 Seg Neutrophils % 77.0 Lymphocytes % 12.2 L Monocytes % 8.0 Eosinophils % 2.5 Basophils % 0.3 Absolute Neutrophils 5.4 Absolute Lymphocytes 0.8 Absolute Monocytes 0.6 Absolute Eosinophils 0.2 Absolute Basophils 0.0 Sodium 135.3 L Potassium 3.8 Chloride 104 Carbon Dioxide 25 Anion Gap 6 BUN 13 Creatinine 0.66 Est GFR ( Amer) > 60 Est GFR (Non-Af Amer) > 60 Glucose 167 H Calcium 8.1 L 07/22/18 21:30 Back - Abscess Gram Stain - Final 07/22/18 21:30 Back - Abscess Wound Culture - Final Staphylococcus Aureus No Anaerobic Organisms Assessment & Plan - Time Time Spent with patient: 15-24 minutes - Inpatient Certification Medical Necessity: Need for IV Antibiotics, Need for Surgery - Plan Summary Plan Summary: His WBC is trending down. However, there is still purulent discharge. C/S is staph aureus sensitive to most antibiotics Will schedule further debridement tomorrow in the OR Keep NPO tonight
[2018-07-24] MEDS: ERTAPENEM SODIUM 1 GM in NORMAL SALINE 50 ML IV SCH (21:36)
[2018-07-25] MEDS: OXYCODONE-ACETAMINOPHEN 5-325 MG TABLET PO PRN (01:31)
[2018-07-25] MEDS: VANCOMYCIN HCL 1,000 MG in DEXTROSE 5%-WATER 250 ML IV SCH ×3 (04:17→14:52)
[2018-07-25] MEDS: HEPARIN SOD (PORCINE) 5,000 UNIT/ML 1 ML SYRINGE SUBCUT SCH ×3 (05:23→21:25)
[2018-07-25] MEDS: KETOROLAC TROMETHAMINE INJ/PF 30 MG/1 ML SDV IV SCH ×3 (05:27→17:21)
[2018-07-25 05:50] LABS: ABSOLUTE EOSINOPHILS # (AUTO) 0.2 10^3/uL (0.0-0.6); ABSOLUTE MONOCYTES (AUTO) 0.4 10^3/uL (0.1-1.4); ABSOLUTE NEUT (AUTO) 3.9 10^3/uL (1.7-8.2); BASOPHILS % (AUTO) 0.5 % (0-2); EOSINOPHILS % (AUTO) 2.9 % (0-6); HEMATOCRIT 28.8 % (37.9-51.0); HEMOGLOBIN 9.8 g/dL (13.5-17.0); LYMPHOCYTES % (AUTO) 17.5 % (13-45); MEAN CORPUSCULAR HEMOGLOBIN 28.3 pg (27.0-33.4); MEAN CORPUSCULAR HGB CONC 34.1 g/dL (32.0-36.0); MEAN CORPUSCULAR VOLUME 83 fl (80-97); MONOCYTES % (AUTO) 7.3 % (3-13); PLATELET COUNT 218 10^3/uL (150-450); RED BLOOD COUNT 3.47 10^6/uL (4.35-5.55); RED CELL DISTRIBUTION WIDTH 13.9 % (11.5-14.0); SEGMENTED NEUTROPHILS % (AUTO) 71.8 % (42-78); TOTAL CELLS COUNTED % (AUTO) 100 %; WHITE BLOOD COUNT 5.5 10^3/uL (4.0-10.5)
[2018-07-25] MEDS: NORMAL SALINE 1000 ML 1,000 ML IV PRN ×2 (06:54→11:59)
[2018-07-25] MEDS: INSULIN REG, HUMAN 100 UNIT/ML 3 ML VIAL (PYX) SUBCUT SCH ×4 (08:07→21:16)
[2018-07-25] MEDS ORDERED: PROPOFOL INJ 200 MG/20 ML VIAL IV ONE ×2 (08:57→10:11)
[2018-07-25] MEDS ORDERED: ONDANSETRON HCL INJ/PF 4 MG/2 ML SDV ONE (08:57)
[2018-07-25] MEDS ORDERED: MIDAZOLAM 2 MG/2 ML INJ ONE (08:57)
[2018-07-25] MEDS ORDERED: FENTANYL CITRATE INJ/PF 100 MCG/2 ML AMPUL ONE (08:57)
[2018-07-25] MEDS ORDERED: MORPHINE SULFATE 10 MG/ML INJ IV PRN (09:28)
[2018-07-25] MEDS ORDERED: FENTANYL CITRATE INJ/PF 100 MCG/2 ML AMPUL IV PRN ×3 (09:28)
[2018-07-25] MEDS ORDERED: PROMETHAZINE HCL INJ 25 MG/1 ML VIAL IV PRN (09:28)
[2018-07-25] MEDS ORDERED: MEPERIDINE HCL/PF INJ 25 MG/1 ML DISP.SYRIN IV PRN (09:28)
[2018-07-25] MEDS ORDERED: DIPHENHYDRAMINE HCL 50 MG/ML VIAL IV PRN (09:28)
[2018-07-25] MEDS ORDERED: LIDOCAINE 0.5% INJ-PF (5 MG/ML) 50 ML SDV ONE (09:31)
[2018-07-25] MEDS ORDERED: KETOROLAC TROMETHAMINE INJ/PF 30 MG/1 ML SDV ONE (10:47)
[2018-07-25] MEDS: LISINOPRIL 5 MG TABLET PO SCH (11:57)
[2018-07-25] MEDS: GLIPIZIDE 5 MG TABLET PO SCH ×2 (11:57→17:21)
--- NOTE | 2018-07-25 12:00 | OPERATIVE REPORT E ---
Operative Report NAME: ALEENA JOHNSON : 1980 AGE: 37Y DATE OF SURGERY: 07/25/2018 ROOM: 425 PREOPERATIVE DIAGNOSIS: PERSISTENT ABSCESS OF THE UPPER BACK POST DEBRIDEMENT. POSTOPERATIVE DIAGNOSIS: PERSISTENT ABSCESS OF THE UPPER BACK POST DEBRIDEMENT. OPERATION: FURTHER DEBRIDEMENT AND PARTIAL FASCIECTOMY OF THE UPPER BACK ABSCESS. SURGEON: ОЛЕГ FISHER M.D. ANESTHESIA: Local, MAC. INDICATION: The patient is a 37-year-old male who had an abscess of the back that was drained about two days ago. He is still having some drainage around the debridement site and therefore needed further debridement. PROCEDURE: The patient was placed in the left lateral decubitus position, and after adequate IV sedation, the back was then prepped and draped in the usual sterile fashion. Appropriate timeout was called. Local anesthesia infiltrated around the area of the old debridement site, which was roughly about 9 x 5.5 cm x 5 cm deep. An incision was made around the abscess cavity, since there was still some purulent material extruding when surrounding areas were squeezed. Subcu was further debrided sharply and fascia noted to be involved, and this was partially excised through the use of 15 blade. Hemostasis was then obtained with cautery. The area was then pulse lavaged. The resulting abscess cavity measured 12 cm long x 6 cm wide x 6 cm deep. The cavity was then packed with Betadine-soaked Kerlix. Sterile dressings placed over the Kerlix. The patient tolerated the procedure well. Needle, instrument and sponge count were all corrected. Estimated blood loss about 50 mL. The patient was brought to the recovery room in satisfactory condition. DICTATING PHYSICIAN: ОЛЕГ FISHER M.D. [id number] PHY#: [id number] ID: [id number] JOB#: [id number] ACCT: [id number] cc:ОЛЕГ FISHER M.D. >
--- NOTE | 2018-07-25 13:44 | PDOC PROGRESS REPORT ---
Subjective Progress Note for:: 07/25/18 Subjective:: This is a 37 yr old male with obesity, DM 2 and prior abscessess who was admitted for a back abscess. Hospitalist service was consulted for co-management of his diabetes mellitus. He had debridement on admission. Wound culture grew MSSA. Patient just got back from the OR and had a repeat debridement. He appears comfortable and denies acute complaint. Blood pressures are normal. Sugars are at goal. Reason For Visit: BACK ABSCESS Physical Exam Vital Signs: Temp Pulse Resp BP Pulse Ox 98.1 F 99 18 131/77 H 99 07/25/18 12:40 07/25/18 12:40 07/25/18 12:40 07/25/18 12:40 07/25/18 12:40 Intake & Output 07/24/18 07/25/18 07/26/18 06:59 06:59 06:59 Intake Total 5627 5471 2385 Output Total 1150 Balance 5627 5471 1235 Weight 269 lb 6.478 oz 267 lb 10.259 oz General appearance: PRESENT: no acute distress, well-developed, well-nourished Head exam: PRESENT: atraumatic, normocephalic Eye exam: PRESENT: conjunctiva pink, EOMI, PERRLA. ABSENT: scleral icterus Ear exam: PRESENT: normal external ear exam Mouth exam: PRESENT: moist, tongue midline Neck exam: ABSENT: carotid bruit, JVD, lymphadenopathy, thyromegaly Respiratory exam: PRESENT: clear to auscultation priscilla. ABSENT: rales, rhonchi, wheezes Cardiovascular exam: PRESENT: RRR. ABSENT: diastolic murmur, rubs, systolic murmur Pulses: PRESENT: normal dorsalis pedis pul GI/Abdominal exam: PRESENT: normal bowel sounds, soft. ABSENT: distended, guarding, mass, organolmegaly, rebound, tenderness Rectal exam: PRESENT: deferred Extremities exam: PRESENT: full ROM. ABSENT: calf tenderness, clubbing, pedal edema Musculoskeletal exam: PRESENT: other - debrided upper back Neurological exam: PRESENT: alert, awake, oriented to person, oriented to place, oriented to time, oriented to situation, CN II-XII grossly intact. ABSENT: motor sensory deficit Results Laboratory Results: 07/25/18 03:47 07/24/18 05:23 07/25/18 03:47 WBC 5.5 RBC 3.47 L Hgb 9.8 L Hct 28.8 L MCV 83 MCH 28.3 MCHC 34.1 RDW 13.9 Plt Count 218 Seg Neutrophils % 71.8 Lymphocytes % 17.5 Monocytes % 7.3 Eosinophils % 2.9 Basophils % 0.5 Absolute Neutrophils 3.9 Absolute Lymphocytes 1.0 Absolute Monocytes 0.4 Absolute Eosinophils 0.2 Absolute Basophils 0.0 07/23/18 11:44 Back - Abscess Gram Stain - Final 07/23/18 11:44 Back - Abscess Wound Culture - Final Staphylococcus Aureus No Anaerobic Organisms 07/22/18 21:30 Back - Abscess Gram Stain - Final 07/22/18 21:30 Back - Abscess Wound Culture - Final Staphylococcus Aureus No Anaerobic Organisms Assessment and Plan - Diagnosis (1) Complicated abscess Is this a current diagnosis for this admission?: Yes Plan: S/P debridement x 2. Wound culture grew MSSA. Recommend de-escalation of antibiotics as deemed appropriate by primary service. (2) Diabetes Is this a current diagnosis for this admission?: Yes Plan: Hba1c at 9.0. Sugars at goal. On SSI and Glipizide. - Time Time Spent with patient: 15-24 minutes
[2018-07-25 15:04] LABS: VANCOMYCIN,TROUGH 19.7 ug/mL (5.0-20.0)
[2018-07-25] MEDS: CLINDAMYCIN 600 MG/D5W RTU 600 MG/50 ML RTUPB IV SCH (17:21)
[2018-07-26] MEDS: CLINDAMYCIN 600 MG/D5W RTU 600 MG/50 ML RTUPB IV SCH ×5 (00:16→23:22)
[2018-07-26] MEDS: KETOROLAC TROMETHAMINE INJ/PF 30 MG/1 ML SDV IV SCH ×5 (00:16→23:24)
[2018-07-26] MEDS: NORMAL SALINE 1000 ML 1,000 ML IV PRN (00:19)
[2018-07-26] MEDS: HEPARIN SOD (PORCINE) 5,000 UNIT/ML 1 ML SYRINGE SUBCUT SCH ×3 (05:10→23:25)
[2018-07-26] MEDS: INSULIN REG, HUMAN 100 UNIT/ML 3 ML VIAL (PYX) SUBCUT SCH ×4 (07:21→21:58)
--- NOTE | 2018-07-26 10:11 | PDOC PROGRESS REPORT ---
Subjective Progress Note for:: 07/26/18 Subjective:: Patient has no complaints; anxious to go home Reason For Visit: BACK ABSCESS Physical Exam Vital Signs: Temp Pulse Resp BP Pulse Ox 97.8 F 101 H 14 124/78 100 07/26/18 08:24 07/26/18 08:24 07/26/18 08:24 07/26/18 08:24 07/26/18 08:24 Intake & Output 07/25/18 07/26/18 07/27/18 06:59 06:59 06:59 Intake Total 5486 470 Output Total 1150 Balance 5471 4714 Weight 121.4 kg 122.3 kg General appearance: PRESENT: no acute distress Skin exam: PRESENT: other - Right upper back dressing removed from a large wound with edges approximately 8 x 13 cm by 2 cm; some fibrinous debris but no foul smell, or active drainage; perimeter skin intact; Betadine staining present. Results Laboratory Results: 07/25/18 03:47 07/24/18 05:23 07/23/18 11:44 Back - Abscess Gram Stain - Final 07/23/18 11:44 Back - Abscess Wound Culture - Final Staphylococcus Aureus No Anaerobic Organisms Assessment & Plan - Diagnosis (1) Complicated abscess Is this a current diagnosis for this admission?: Yes Plan: Impression: Sepsis appears controlled in this large upper back Status post serial debridements; diabetes controlled; on clindamycin for non- MRSA. Recommendations: 1. Get patient to shower with a chlorhexidine scrub brush 2. Patient not ready to go home 3. Patient may be ready for wound VAC application tomorrow 4. Discussed the above with nursing staff and patient
[2018-07-26] MEDS: LISINOPRIL 5 MG TABLET PO SCH (10:26)
[2018-07-26] MEDS: GLIPIZIDE 5 MG TABLET PO SCH ×2 (10:27→17:15)
[2018-07-26] MEDS: OXYCODONE-ACETAMINOPHEN 5-325 MG TABLET PO PRN ×2 (10:45→20:27)
--- NOTE | 2018-07-26 13:15 | PDOC PROGRESS REPORT ---
Subjective Progress Note for:: 07/26/18 Subjective:: This is a 37 yr old male with obesity, DM 2 and prior abscessess who was admitted for a back abscess. Hospitalist service was consulted for co-management of his diabetes mellitus. He had debridement on admission. Wound culture grew MSSA. 07/25: Patient just got back from the OR and had a repeat debridement. He appears comfortable and denies acute complaint. Blood pressures are normal. Sugars are at goal. 07/26: No acute event overnight. Patient is very comfortable. Denies pain or any other acute complaints. He is going for possible wound vac placement tomorrow. Blood pressures and sugars remain very well controlled. No further recommendations at this time. Hospitalist service will be signing off today and will be happy to be reconsulted if the need arises. Reason For Visit: BACK ABSCESS Physical Exam Vital Signs: Temp Pulse Resp BP Pulse Ox 97.8 F 101 H 14 124/78 100 07/26/18 08:24 07/26/18 08:24 07/26/18 08:24 07/26/18 08:24 07/26/18 08:24 Intake & Output 07/25/18 07/26/18 07/27/18 06:59 06:59 06:59 Intake Total 5471 4705 Output Total 1150 Balance 5471 3555 Weight 267 lb 10.259 oz 269 lb 10.005 oz General appearance: PRESENT: no acute distress, well-developed, well-nourished Head exam: PRESENT: atraumatic, normocephalic Eye exam: PRESENT: conjunctiva pink, EOMI, PERRLA. ABSENT: scleral icterus Ear exam: PRESENT: normal external ear exam Mouth exam: PRESENT: moist, tongue midline Neck exam: ABSENT: carotid bruit, JVD, lymphadenopathy, thyromegaly Respiratory exam: PRESENT: clear to auscultation priscilla. ABSENT: rales, rhonchi, wheezes Cardiovascular exam: PRESENT: RRR. ABSENT: diastolic murmur, rubs, systolic murmur Pulses: PRESENT: normal dorsalis pedis pul GI/Abdominal exam: PRESENT: normal bowel sounds, soft. ABSENT: distended, guarding, mass, organolmegaly, rebound, tenderness Rectal exam: PRESENT: deferred Musculoskeletal exam: PRESENT: other - large excavated wound S/P debridement on the upper back Neurological exam: PRESENT: alert, awake, oriented to person, oriented to place, oriented to time, oriented to situation, CN II-XII grossly intact. ABSENT: motor sensory deficit Results Laboratory Results: 07/25/18 03:47 07/24/18 05:23 Assessment and Plan - Diagnosis (1) Complicated abscess Is this a current diagnosis for this admission?: Yes Plan: S/P debridement x 2. Wound culture grew MSSA. Recommend de-escalation of antibiotics as deemed appropriate by primary service. 07/26: Antibiotics de-escalated to clindamycin by primary service. (2) Diabetes Is this a current diagnosis for this admission?: Yes Plan: Hba1c at 9.0. Sugars at goal while on SSI and Glipizide. 07/26: Blood sugars remain well controlled. He can be sent home on his regimen of Lantus and glipizide when he will be discharged. (3) HTN (hypertension) Is this a current diagnosis for this admission?: Yes Plan: Blood pressures are well controlled with low dose lisinopril. - Time Time Spent with patient: 15-24 minutes
[2018-07-27] MEDS: HEPARIN SOD (PORCINE) 5,000 UNIT/ML 1 ML SYRINGE SUBCUT SCH ×3 (05:50→21:31)
[2018-07-27] MEDS: CLINDAMYCIN 600 MG/D5W RTU 600 MG/50 ML RTUPB IV SCH ×4 (05:51→23:17)
[2018-07-27] MEDS: KETOROLAC TROMETHAMINE INJ/PF 30 MG/1 ML SDV IV SCH ×4 (05:52→23:20)
[2018-07-27] MEDS: INSULIN REG, HUMAN 100 UNIT/ML 3 ML VIAL (PYX) SUBCUT SCH ×4 (08:56→21:42)
[2018-07-27] MEDS: GLIPIZIDE 5 MG TABLET PO SCH ×2 (10:03→17:12)
[2018-07-27] MEDS: LISINOPRIL 5 MG TABLET PO SCH (10:04)
--- NOTE | 2018-07-27 15:06 | PDOC PROGRESS REPORT ---
Subjective Progress Note for:: 07/27/18 Reason For Visit: BACK ABSCESS Physical Exam Vital Signs: Temp Pulse Resp BP Pulse Ox 97.5 F 89 16 127/79 H 100 07/27/18 12:09 07/27/18 12:09 07/27/18 12:09 07/27/18 12:09 07/27/18 12:09 Intake & Output 07/26/18 07/27/18 07/28/18 06:59 06:59 06:59 Intake Total 4705 2220 50 Output Total 1150 Balance 3555 2220 50 Weight 122.3 kg 122.6 kg Results Laboratory Results: 07/25/18 03:47 07/24/18 05:23 07/25/18 09:35 Back - Upper Gram Stain - Final 07/25/18 09:47 Back - Upper Gram Stain - Final Assessment & Plan - Diagnosis (1) Complicated abscess Is this a current diagnosis for this admission?: Yes - Plan Summary Plan Summary: This is a 37-year-old diabetic male with a large back abscess, status post debridement. There is some fibrinous slough in the wound today, however there is no significantly necrotic tissue. Begin Santyl dressing changes daily. The patient may benefit from a wound VAC in the short-term. After 1 to 2 weeks of healing time, he may benefit from a local advancement or rotation flap for closure. Continue tight glucose control. Discharge planning.
[2018-07-27] MEDS: OXYCODONE-ACETAMINOPHEN 5-325 MG TABLET PO PRN (20:25)
[2018-07-27] MEDS: COLLAGENASE CLOSTRIDIUM HIST. OINT 30 GM TOP PRN (21:31)
[2018-07-28] MEDS: HEPARIN SOD (PORCINE) 5,000 UNIT/ML 1 ML SYRINGE SUBCUT SCH ×3 (06:05→21:33)
[2018-07-28] MEDS: CLINDAMYCIN 600 MG/D5W RTU 600 MG/50 ML RTUPB IV SCH ×4 (06:09→23:49)
[2018-07-28] MEDS: KETOROLAC TROMETHAMINE INJ/PF 30 MG/1 ML SDV IV SCH ×2 (06:11→12:04)
--- NOTE | 2018-07-28 08:24 | PDOC PROGRESS REPORT ---
Subjective Progress Note for:: 07/28/18 Subjective:: feels ok Reason For Visit: BACK ABSCESS Physical Exam Vital Signs: Temp Pulse Resp BP Pulse Ox 98.3 F 79 17 121/60 100 07/27/18 23:16 07/27/18 23:16 07/27/18 23:16 07/27/18 23:16 07/27/18 23:16 Intake & Output 07/27/18 07/28/18 07/29/18 06:59 06:59 06:59 Intake Total 2219 1999 Output Total 7 Balance 2219 1992 Weight 122.6 kg 126.6 kg General appearance: PRESENT: no acute distress Head exam: PRESENT: normocephalic Eye exam: PRESENT: EOMI Mouth exam: PRESENT: dry mucosa Neck exam: PRESENT: full ROM Respiratory exam: PRESENT: clear to auscultation priscilla Cardiovascular exam: PRESENT: rubs Pulses: PRESENT: normal radial pulses, normal femoral pulses Vascular exam: PRESENT: normal capillary refill GI/Abdominal exam: PRESENT: soft Torso Front/Back Image: 1 - back abscess, with fibrinous exudate. some granulation tissue Rectal exam: PRESENT: deferred Extremities exam: PRESENT: full ROM Musculoskeletal exam: PRESENT: full ROM Neurological exam: PRESENT: alert, awake, oriented to person, oriented to place Psychiatric exam: PRESENT: appropriate affect Skin exam: PRESENT: dry Results Laboratory Results: 07/25/18 03:47 07/24/18 05:23 07/25/18 09:35 Back - Upper Gram Stain - Final 07/25/18 09:35 Back - Upper Wound Culture - Final Staphylococcus Aureus No Anaerobic Organisms 07/25/18 09:47 Back - Upper Gram Stain - Final 07/25/18 09:47 Back - Upper Wound Culture - Final Staphylococcus Aureus No Anaerobic Organisms 07/23/18 01:45 Blood Blood Culture - Final NO GROWTH IN 5 DAYS 07/22/18 22:13 Blood Blood Culture - Final NO GROWTH IN 5 DAYS Assessment & Plan - Plan Summary Plan Summary: s/p debridement of back abscess now wth dressing changes using santil wound still with fibrinous exudate no areas of necrosis or jorge pus plan cont wet to dry still too early for wound vac.
[2018-07-28] MEDS: INSULIN REG, HUMAN 100 UNIT/ML 3 ML VIAL (PYX) SUBCUT SCH ×4 (08:57→21:27)
[2018-07-28] MEDS: GLIPIZIDE 5 MG TABLET PO SCH ×2 (10:16→18:11)
[2018-07-28] MEDS: LISINOPRIL 5 MG TABLET PO SCH (10:16)
[2018-07-28] MEDS: COLLAGENASE CLOSTRIDIUM HIST. OINT 30 GM TOP PRN (21:33)
[2018-07-29] MEDS: CLINDAMYCIN 600 MG/D5W RTU 600 MG/50 ML RTUPB IV SCH ×4 (05:28→23:13)
[2018-07-29] MEDS: HEPARIN SOD (PORCINE) 5,000 UNIT/ML 1 ML SYRINGE SUBCUT SCH ×3 (05:30→21:49)
[2018-07-29] MEDS: INSULIN REG, HUMAN 100 UNIT/ML 3 ML VIAL (PYX) SUBCUT SCH ×4 (07:44→21:48)
[2018-07-29] MEDS: GLIPIZIDE 5 MG TABLET PO SCH ×2 (10:02→17:20)
[2018-07-29] MEDS: LISINOPRIL 5 MG TABLET PO SCH (10:03)
--- NOTE | 2018-07-29 13:34 | Operative Report ---
Nonrecallable Operative Report DATE OF SURGERY: 07/29/18 PREOPERATIVE DIAGNOSIS: Open wound upper back, none MRSA infected POSTOPERATIVE DIAGNOSIS: Same with minimal nonviable debris OPERATION: Sharp excisional debridement of subcutaneous tissue and muscle of the upper back wound SURGEON: LUISA MACIAS ANESTHESIA: Other - None TISSUE REMOVED OR ALTERED: Debris COMPLICATIONS: None ESTIMATED BLOOD LOSS: Scant INTRAOPERATIVE FINDINGS: Below PROCEDURE: The patient was placed in the prone position on his bed in the room. The wound packing was removed, and the wound exposed. Using sharp tenotomy scissors, and 10 blade, approximately 9 cm of subcutaneous fat, and muscle and debris which was devitalized was sharply debrided from the open wound. It was an excisional debridement of nonviable tissue; there were no pockets or tunneling. Wound bed at approximately 60% granulation tissue was felt ready for wound VAC application. Patient tolerated the procedure well.
[2018-07-30] MEDS: HEPARIN SOD (PORCINE) 5,000 UNIT/ML 1 ML SYRINGE SUBCUT SCH ×3 (05:08→23:09)
[2018-07-30] MEDS: CLINDAMYCIN 600 MG/D5W RTU 600 MG/50 ML RTUPB IV SCH ×4 (05:44→23:13)
[2018-07-30] MEDS: INSULIN REG, HUMAN 100 UNIT/ML 3 ML VIAL (PYX) SUBCUT SCH ×4 (07:52→23:09)
--- NOTE | 2018-07-30 08:23 | PDOC PROGRESS REPORT ---
Subjective Progress Note for:: 07/30/18 Subjective:: feels well Reason For Visit: BACK ABSCESS Physical Exam Vital Signs: Temp Pulse Resp BP Pulse Ox 98.6 F 89 16 119/78 99 07/30/18 07:19 07/30/18 07:19 07/30/18 07:19 07/30/18 07:19 07/30/18 07:19 Intake & Output 07/29/18 07/30/18 07/31/18 06:59 06:59 06:59 Intake Total 730 820 Output Total 5 Balance 725 820 Weight 124.5 kg 122.3 kg General appearance: PRESENT: no acute distress Head exam: PRESENT: normocephalic Eye exam: PRESENT: EOMI Ear exam: PRESENT: normal external ear exam Mouth exam: PRESENT: moist Neck exam: PRESENT: full ROM Respiratory exam: PRESENT: clear to auscultation priscilla Cardiovascular exam: PRESENT: RRR Pulses: PRESENT: normal radial pulses, normal femoral pulses Vascular exam: PRESENT: normal capillary refill GI/Abdominal exam: PRESENT: soft Rectal exam: PRESENT: deferred Extremities exam: PRESENT: full ROM Musculoskeletal exam: PRESENT: full ROM Neurological exam: PRESENT: alert, awake, oriented to person Skin exam: PRESENT: other - wound vac in place on upper back Results Laboratory Results: 07/25/18 03:47 07/24/18 05:23 Assessment & Plan - Plan Summary Plan Summary: doing well with wound vac placed yesterday prob home today with wound vac and home health
[2018-07-30] MEDS: LISINOPRIL 5 MG TABLET PO SCH (09:47)
[2018-07-30] MEDS: GLIPIZIDE 5 MG TABLET PO SCH ×2 (09:47→18:21)
--- NOTE | 2018-07-30 10:39 | DISCHARGE SUMMARY E ---
Discharge Summary NAME: ALEENA JOHNSON : 1980 AGE: 37Y ADMITTED: 07/22/2018 DISCHARGED: 07/30/2018 ADMISSION DIAGNOSIS: Back abscess. DISCHARGE DIAGNOSIS: Back abscess. OPERATIONS: Incision, drainage, and debridement of upper back abscess. REASON FOR HOSPITALIZATION/HOSPITAL COURSE: This is a 37-year-old male with past medical history of morbid obesity, insulin-dependent diabetes mellitus, presented with a 3-day history of swelling and pain to his upper back. In the emergency department he was found to have a large abscess, 19 x 13 cm, that had been spontaneously draining. ID at bedside was done, but it required operative debridement. He was taken to the operating room by Dr. Davies for a wound debridement. Postoperatively he was managed in the hospital on IV antibiotics and dressing changes. Over the course of the next couple of days he had a number of minor bedside debridements with continued dressing changes. Eventually the wound started granulating well and became markedly improved with the wet to dry dressing changes. On 07/29/2018 he underwent a wound VAC placement. Currently he is tolerating a regular diet. He is doing well. He is afebrile. His last white count was 5.5. His sugars are under control and he is ready for discharge home with wound VAC in place. He will be discharged home today with home health followup for wound VAC changes and he will follow up in the surgery clinic 7 to 10 days after discharge. He is not requiring any pain medicine and does not request any. FINAL DIAGNOSIS: Upper back abscess. DICTATING PHYSICIAN: REY GARCIA M.D. [id number] Y#: [id number] ID: [id number] JOB#: [id number] ACCT: [id number] cc:REY GARCIA M.D. [facility],
[2018-07-31] MEDS: HEPARIN SOD (PORCINE) 5,000 UNIT/ML 1 ML SYRINGE SUBCUT SCH ×3 (05:04→22:18)
[2018-07-31] MEDS: CLINDAMYCIN 600 MG/D5W RTU 600 MG/50 ML RTUPB IV SCH ×4 (05:06→23:03)
[2018-07-31] MEDS: INSULIN REG, HUMAN 100 UNIT/ML 3 ML VIAL (PYX) SUBCUT SCH ×4 (08:00→21:31)
--- NOTE | 2018-07-31 09:11 | PDOC PROGRESS REPORT ---
Subjective Progress Note for:: 07/31/18 Subjective:: feels ok Reason For Visit: BACK ABSCESS Physical Exam Vital Signs: Temp Pulse Resp BP Pulse Ox 98.8 F 76 14 107/54 L 98 07/30/18 23:56 07/30/18 23:56 07/30/18 23:56 07/30/18 23:56 07/30/18 23:56 Intake & Output 07/30/18 07/31/18 08/01/18 06:59 06:59 06:59 Intake Total 820 1571 Balance 820 1571 Weight 122.3 kg 120.8 kg General appearance: PRESENT: no acute distress Head exam: PRESENT: normocephalic Eye exam: PRESENT: EOMI Ear exam: PRESENT: normal external ear exam Mouth exam: PRESENT: moist Neck exam: PRESENT: full ROM, other - upper back wound vac in place Respiratory exam: PRESENT: clear to auscultation priscilla Cardiovascular exam: PRESENT: RRR Pulses: PRESENT: normal radial pulses, normal femoral pulses Vascular exam: PRESENT: normal capillary refill GI/Abdominal exam: PRESENT: normal bowel sounds Rectal exam: PRESENT: deferred Extremities exam: PRESENT: full ROM Musculoskeletal exam: PRESENT: full ROM Neurological exam: PRESENT: alert, awake, oriented to person, oriented to place Psychiatric exam: PRESENT: appropriate affect Skin exam: PRESENT: dry Results Laboratory Results: 07/25/18 03:47 07/24/18 05:23 Assessment & Plan - Plan Summary Plan Summary: s/p debridement of back abscess, now with wound vac in place awaiting approval of wound vac for dc home
[2018-07-31] MEDS: GLIPIZIDE 5 MG TABLET PO SCH ×2 (10:25→17:53)
[2018-07-31] MEDS: LISINOPRIL 5 MG TABLET PO SCH (10:25)
[2018-07-31] MEDS ORDERED: MORPHINE SULFATE 10 MG/ML INJ ONE (22:54)
[2018-07-31] MEDS ORDERED: MORPHINE SULFATE 10 MG/ML INJ IV PRN (22:55)
[2018-08-01] MEDS: OXYCODONE-ACETAMINOPHEN 5-325 MG TABLET PO PRN ×3 (01:00→19:35)
[2018-08-01] MEDS: HEPARIN SOD (PORCINE) 5,000 UNIT/ML 1 ML SYRINGE SUBCUT SCH ×3 (05:38→22:38)
[2018-08-01] MEDS: CLINDAMYCIN 600 MG/D5W RTU 600 MG/50 ML RTUPB IV SCH ×2 (05:38→16:45)
[2018-08-01] MEDS: INSULIN REG, HUMAN 100 UNIT/ML 3 ML VIAL (PYX) SUBCUT SCH ×4 (08:00→22:38)
--- NOTE | 2018-08-01 08:47 | PDOC PROGRESS REPORT ---
Subjective Progress Note for:: 08/01/18 Subjective:: feels well Reason For Visit: BACK ABSCESS Physical Exam Vital Signs: Temp Pulse Resp BP Pulse Ox 98.2 F 90 16 123/70 99 08/01/18 01:04 08/01/18 01:04 08/01/18 01:04 08/01/18 01:04 08/01/18 01:04 Intake & Output 07/31/18 08/01/18 08/02/18 06:59 06:59 06:59 Intake Total 1571 200 Balance 1571 200 Weight 120.8 kg 119.5 kg General appearance: PRESENT: no acute distress Eye exam: PRESENT: EOMI Mouth exam: PRESENT: moist Neck exam: PRESENT: full ROM Respiratory exam: PRESENT: clear to auscultation priscilla Cardiovascular exam: PRESENT: RRR Pulses: PRESENT: normal radial pulses, normal femoral pulses GI/Abdominal exam: PRESENT: soft Rectal exam: PRESENT: deferred Extremities exam: PRESENT: full ROM Musculoskeletal exam: PRESENT: full ROM Neurological exam: PRESENT: alert, awake, oriented to person, oriented to place Psychiatric exam: PRESENT: appropriate affect Skin exam: PRESENT: dry Results Laboratory Results: 07/25/18 03:47 07/24/18 05:23 Assessment & Plan - Plan Summary Plan Summary: doing well wound vac changed yesterday 'working well prob home in am.
[2018-08-01] MEDS: LISINOPRIL 5 MG TABLET PO SCH (09:41)
[2018-08-01] MEDS: GLIPIZIDE 5 MG TABLET PO SCH ×2 (09:42→19:26)
[2018-08-01] MEDS ORDERED: DIPHENHYDRAMINE HCL 25 MG CAPSULE PO PRN (19:40)
[2018-08-02] MEDS: HEPARIN SOD (PORCINE) 5,000 UNIT/ML 1 ML SYRINGE SUBCUT SCH ×2 (05:31→14:00)
[2018-08-02] MEDS: INSULIN REG, HUMAN 100 UNIT/ML 3 ML VIAL (PYX) SUBCUT SCH ×2 (08:00→11:52)
--- NOTE | 2018-08-02 11:29 | PDOC PROGRESS REPORT ---
Subjective Progress Note for:: 08/02/18 Subjective:: Patient doing well, no complaints, wound VAC changed yesterday. Blood sugars 190 and less. [facility]. Reason For Visit: BACK ABSCESS Physical Exam Vital Signs: Temp Pulse Resp BP Pulse Ox 97.5 F 99 18 109/68 100 08/02/18 07:36 08/02/18 07:36 08/02/18 07:36 08/02/18 07:36 08/02/18 07:36 Intake & Output 08/01/18 08/02/18 08/03/18 06:59 06:59 06:59 Intake Total 200 620 Balance 200 620 Weight 119.5 kg 119.5 kg General appearance: PRESENT: no acute distress Skin exam: PRESENT: other - VAC applied; appropriate suction applied; surrounding skin without infection. Results Laboratory Results: 07/25/18 03:47 07/24/18 05:23 Assessment & Plan - Diagnosis (1) Complicated abscess Is this a current diagnosis for this admission?: Yes Plan: Impression: Patient is now 7 and 9 days respectively postop debridements of upper back infection, non-MRSA. Wound healing by secondary intention with use of wound VAC. Recommendations 1. Anticipate discharge home today with VAC therapy on an outpatient basis 2. If this cannot be COORDINATED, then will have patient follow-up with the advanced wound [facility] for dressing changes etc. 3. Patient can be managed with p.o. antibiotics.
[2018-08-02] MEDS: GLIPIZIDE 5 MG TABLET PO SCH (11:50)
[2018-08-02] MEDS: LISINOPRIL 5 MG TABLET PO SCH (11:51)
[2018-08-02 16:23] VITALS: BP 107/60
== END 2018-08-02 17:30 | disposition home health service (06) | DRG 571 ==
LOC: ER 17:23 → EDBD 17:23 → EH 22:27 → 4S 07-23 13:22
PROVIDERS: ADMIT Surgery; ATTEND Surgery
PROC: 0H96XZZ Drainage of Back Skin, External Approach (ICD-10-PCS; principal; 2018-07-22)
PROC: 0JB70ZZ Excision of Back Subcutaneous Tissue and Fascia, Open Approach (ICD-10-PCS; 2018-07-23)
PROC: 0JB70ZZ Excision of Back Subcutaneous Tissue and Fascia, Open Approach (ICD-10-PCS; 2018-07-25)
PROC: 0JB70ZZ Excision of Back Subcutaneous Tissue and Fascia, Open Approach (ICD-10-PCS; 2018-07-29)
DX: L02.212 Cutaneous abscess of back [any part, except buttock and flank] (principal); E87.1 Hypo-osmolality and hyponatremia; Z68.42 Body mass index [BMI] 45.0-49.9, adult; L03.312 Cellulitis of back [any part except buttock and flank]; E11.65 Type 2 diabetes mellitus with hyperglycemia; I10 Essential (primary) hypertension; B95.61 Methicillin susceptible Staphylococcus aureus infection as the cause of diseases classified elsewhere; E66.01 Morbid (severe) obesity due to excess calories
CPT/HCPCS: 300; 36415; 80048; 80053; 80202; 82962; 83036; 85025; 85027; 87040; 87070; 87075; 87077; 87186; 87205; 96360; 99284; J1335; J1644; J1815; J1885; J2250; J2270; J2405; J2704; J3010; J3370; J3490; J7030; J7060

== ENCOUNTER 2019-09-29 18:30 | Emergency (ER) | payer OTHER ==
--- NOTE | 2019-09-29 19:48 | ER Document Report ---
ED Medical Screen (RME) - General Chief Complaint: Anxiety Stated Complaint: PSYCH/ANXIETY Time Seen by Provider: 09/29/19 19:41 Mode of Arrival: Ambulatory Information source: Patient Notes: HPI; 39-year-old male past medical history significant for anxiety presents to the emergency room complaining of worsening [place], trouble sleeping, difficulty focusing at work for the past 2 weeks. Patient states over the past week that he has had thoughts of harming self. He denies any plan. Denies any previous suicide attempts. Denies any homicidal ideation. PE: Alert and oriented x3. Mild distress noted. Lungs: Clear to auscultation without rales, rhonchi, wheezes. Heart: Regular rate and rhythm, without murmurs, rubs, gallops. Psychiatric: Flat affect. Cooperative, answers questions. Continues to admit to suicidal ideation without a plan. I have greeted and performed a rapid initial assessment of this patient. A comprehensive ED assessment and evaluation of the patient, analysis of test results and completion of the medical decision making process will be conducted by additional ED providers. I have specifically instructed the patient or family members with the patient to immediately return to any nursing staff should anything change in the patient's condition or with their chief complaint. TRAVEL OUTSIDE OF THE [place] IN LAST 30 DAYS: No - Related Data Allergies/Adverse Reactions: No Known Allergies Allergy (Verified 09/29/19 19:40) Past Medical History Endocrine Medical History: Reports: Hx Diabetes Mellitus Type 2 Renal/ Medical History: Denies: Hx Peritoneal Dialysis Psychiatric Medical History: Reports: Hx Depression Physical Exam - Vital signs Vitals: Temp Pulse Resp BP Pulse Ox 98.7 F 89 20 141/78 H 96 09/29/19 18:44 09/29/19 18:44 09/29/19 18:44 09/29/19 18:44 09/29/19 18:44 Course - Vital Signs Vital signs: Temp Pulse Resp BP Pulse Ox 98.7 F 89 20 141/78 H 96 09/29/19 18:44 09/29/19 18:44 09/29/19 18:44 09/29/19 18:44 09/29/19 18:44
[2019-09-29 20:45] LABS: ABSOLUTE EOSINOPHILS # (AUTO) 0.1 10^3/uL (0.0-0.6); ABSOLUTE LYMPHOCYTES (AUTO) 1.8 10^3/uL (0.5-4.7); ABSOLUTE MONOCYTES (AUTO) 0.5 10^3/uL (0.1-1.4); ABSOLUTE NEUT (AUTO) 4.8 10^3/uL (1.7-8.2); BASOPHILS % (AUTO) 0.3 % (0-2); EOSINOPHILS % (AUTO) 1.2 % (0-6); HEMATOCRIT 37.9 % (37.9-51.0); HEMOGLOBIN 12.8 g/dL (13.5-17.0); LYMPHOCYTES % (AUTO) 25.1 % (13-45); MEAN CORPUSCULAR HGB CONC 33.7 g/dL (32.0-36.0); MEAN CORPUSCULAR VOLUME 83 fl (80-97); MONOCYTES % (AUTO) 6.8 % (3-13); PLATELET COUNT 248 10^3/uL (150-450); RED BLOOD COUNT 4.57 10^6/uL (4.35-5.55); RED CELL DISTRIBUTION WIDTH 14.5 % (11.5-14.0); SEGMENTED NEUTROPHILS % (AUTO) 66.6 % (42-78); TOTAL CELLS COUNTED % (AUTO) 100 %; WHITE BLOOD COUNT 7.2 10^3/uL (4.0-10.5)
[2019-09-29 20:47] LABS: APPEARANCE,URINE CLEAR; BILIRUBIN,URINE NEGATIVE (NEGATIVE); COLOR,URINE YELLOW; GLUCOSE, URINE 150 mg/dL (NEGATIVE); KETONES,URINE NEGATIVE (NEGATIVE); LEUKOCYTE ESTERASE,URINE NEGATIVE (NEGATIVE); NITRITE,URINE NEGATIVE (NEGATIVE); PROTEIN,URINE NEGATIVE (NEGATIVE); URINE SPECIFIC GRAVITY 1.016; UROBILINOGEN,URINE NEGATIVE mg/dL (<2.0)
[2019-09-29 20:57] LABS: ALBUMIN 3.9 g/dL (3.5-5.0); ALKALINE PHOSPHATASE 64 U/L (38-126); ANION GAP 6 (5-19); ASPARTATE AMINO TRANSFERASE 14 U/L (17-59); BILIRUBIN,TOTAL 0.9 mg/dL (0.2-1.3); BLOOD UREA NITROGEN 10 mg/dL (7-20); CALCIUM 9.1 mg/dL (8.4-10.2); CARBON DIOXIDE 26 mmol/L (22-30); CHLORIDE 103 mmol/L (98-107); GLUCOSE 162 mg/dL (75-110); TOTAL PROTEIN 6.8 g/dL (6.3-8.2)
[2019-09-29 21:02] LABS: ACETAMINOPHEN < 10 ug/mL (10-30); ALCOHOL < 10 mg/dL (NONE DETECTED); SALICYLATE < 1.0 mg/dL (2.0-20.0)
[2019-09-29 21:07] LABS: URINE AMPHETAMINES SCREEN NEGATIVE; URINE BARBITURATES SCREEN NEGATIVE; URINE BENZODIAZEPINES SCREEN NEGATIVE; URINE COCAINE SCREEN NEGATIVE; URINE MARIJUANA (THC) SCREEN NEGATIVE; URINE METHADONE SCREEN NEGATIVE; URINE PHENCYCLIDINE SCREEN NEGATIVE
--- NOTE | 2019-09-29 22:30 | EKG REPORT ---
SEVERITY:- ABNORMAL ECG - SINUS RHYTHM INCOMPLETE RIGHT BUNDLE BRANCH BLOCK : Confirmed by: Kathy Juares MD 29-Sep-2019 22:29:46
--- NOTE | 2019-09-29 23:44 | ER Document Report ---
ED Psych Disorder / Suicide <REGIS FINNEGAN - Last Filed: 09/30/19 14:56> <JANYTRISTAN - Last Filed: 09/30/19 15:21> - General Mode of Arrival: Ambulatory TRAVEL OUTSIDE OF THE [place] IN LAST 30 DAYS: No <BRANDAN DUMONT - Last Filed: 10/01/19 11:25> - General Chief Complaint: Anxiety Stated Complaint: PSYCH/ANXIETY Time Seen by Provider: 09/29/19 19:41 Primary Care Provider: [facility] [Outside] - Follow up as needed [facility] [Outside] - Follow up as needed [facility] - Follow up as needed Notes: Patient is a 39-year-old male who presents emergency department with a chief complaint of anxiety. Patient states that his anxiety started about 2 weeks ago. Patient states that his anxiety is mainly from his job. He works for [employer]. Patient states that packages have been missing, therefore it makes him feel stressed out and have anxiety. Patient also reports that he has not been sleeping. Patient does not take any medications for anxiety. Patient has a history of diabetes. He currently takes Lantus and NovoLog. (BRANDAN DUMONT) - Related Data Allergies/Adverse Reactions: No Known Allergies Allergy (Verified 09/29/19 19:40) Past Medical History - General Information source: Patient - Social History Smoking Status: Never Smoker Frequency of alcohol use: Social Drug Abuse: None Family History: Hypertension Patient has homicidal ideation: No Endocrine Medical History: Reports: Hx Diabetes Mellitus Type 2 Renal/ Medical History: Denies: Hx Peritoneal Dialysis Psychiatric Medical History: Reports: Hx Depression <BRANDAN DUMONT - Last Filed: 10/01/19 11:25> Review of Systems <BRANDAN DUMONT - Last Filed: 10/01/19 11:25> - Review of Systems Notes: REVIEW OF SYSTEMS: CONSTITUTIONAL : Denies recent illness. Denies recent unintentional weight loss. Denies fever, chills, or sweats. EENT: Denies eye, ear, throat, or mouth pain, discharge, or symptoms. Denies na patrizia or sinus congestion. CARDIOVASCULAR: Denies chest pain. RESPIRATORY: Denies shortness of breath, cough, congestion, difficulty breathing, or wheezing. GASTROINTESTINAL: Denies nausea, vomiting, and diarrhea. Denies abdominal pain. Denies constipation. GENITOURINARY: Denies difficulty urinating, burning, blood in urine, urgency or frequency. MUSCULOSKELETAL: Denies neck and back pain. Denies joint pain or swelling. SKIN: Denies rash, itchiness, or lesions HEMATOLOGIC : Denies easy bruising or bleeding. LYMPHATIC: Denies swollen, painful, enlarged glands. NEUROLOGICAL: Denies no numbness or tingling denies weakness. Denies headache. Denies altered mental status. Denies alteration in speech. PSYCHIATRIC: See HPI. All other systems reviewed and negative. (BRANDAN DUMONT) Physical Exam <BRANDAN DUMONT - Last Filed: 10/01/19 11:25> - Vital signs Vitals: Temp Pulse Resp BP Pulse Ox 98.7 F 89 20 141/78 H 96 09/29/19 18:44 09/29/19 18:44 09/29/19 18:44 09/29/19 18:44 09/29/19 18:44 - Notes Notes: PHYSICAL EXAMINATION: GENERAL: Appears well, obese, no acute distress. HEAD: Normocephalic, atraumatic. EYES: PERRL, conjunctiva normal, all extraocular movements intact, sclera nonicteric ENT: Moist mucous membranes. NECK: Supple, no noticeable swelling, redness, rash. Normal range of motion. LUNGS: Equal breath sounds bilaterally and clear to auscultation. No wheezes rales or rhonchi. CARDIOVASCULAR: S1-S2, regular rate, regular rhythm. Radial pulses 2+, normal. ABDOMEN: Normoactive bowel sounds. Soft, nontender, no guarding, no rebound tenderness, and no masses palpated. EXTREMITIES: Normal strength and range of motion, no pitting or edema. No cyanosis. NEUROLOGICAL: Moves all extremities upon command. Strength 5/5 in all extremities. PSYCH: Normal mood, normal affect. SKIN: Warm, dry. No rash, lesions, ulcerations noted. Normal skin turgor. ( BRANDAN DUMONT) Course - Laboratory Result Diagrams: 09/29/19 20:10 09/29/19 20:10 <REGIS FINNEGAN - Last Filed: 09/30/19 14:56> - Laboratory Result Diagrams: 09/29/19 20:10 09/29/19 20:10 <TRISTAN CARMICHAEL - Last Filed: 09/30/19 15:21> - Laboratory Result Diagrams: 09/29/19 20:10 09/29/19 20:10 <BRANDAN DUMONT - Last Filed: 10/01/19 11:25> - Re-evaluation Re-evalutation: 09/30/19 15:19 As instructed by mental health the patient is ready for discharge. As instructed by mental health provider that the patient's weapons have been removed from his house. They recommend 5 mg of BuSpar twice daily. I will go ahead and order this for the patient. Patient denies any suicidal or homicidal ideations. No auditory or visual hallucinations. Patient is cleared by medical. (TRISTAN CARMICHAEL) 09/30/19 00:00 Hematology is unremarkable. Chemistries are also unremarkable. LFTs and thyroi d studies are normal. Urinalysis is unremarkable. Toxicology is negative. Salicylates, acetaminophen, and alcohol levels are all negative. At this time, the patient is medically clear for mental health evaluation by Dr. Ricketts and staff. (BRANDAN DUMONT) - Vital Signs Vital signs: Temp Pulse Resp BP Pulse Ox 97.7 F 86 18 135/76 H 99 09/29/19 23:26 09/29/19 23:26 09/29/19 23:26 09/29/19 23:26 09/29/19 23:26 - Laboratory Laboratory results interpreted by me: 09/29/19 09/29/19 09/29/19 20:10 20:10 20:10 Hgb 12.8 L RDW 14.5 H Sodium 134.7 L Glucose 162 H POC Glucose AST 14 L Urine Glucose (UA) 150 H Salicylates < 1.0 L Acetaminophen < 10 L 09/29/19 09/30/19 09/30/19 23:28 07:04 10:35 Hgb RDW Sodium Glucose POC Glucose 138 H 147 H 157 H AST Urine Glucose (UA) Salicylates Acetaminophen Discharge <REGIS FINNEGAN - Last Filed: 09/30/19 14:56> <TRISTAN CARMICHAEL - Last Filed: 09/30/19 15:21> <BRANDAN DUMONT - Last Filed: 10/01/19 11:25> - Discharge Clinical Impression: Anxiety, Suicidal ideation Condition: Stable Disposition: HOME, SELF-CARE Instructions: Anxiety ([facility]) Additional Instructions: You have been evaluated by both medical and behavioral health teams for increased anxiety to the extent it was causing you to have suicidal thoughts. You have been deemed appropriate for discharge. While in the emergency department you received the following services/or had access to: Medical screening and assessment, nursing services, dietary services, pharmacological services, one-on-one counseling and/or psychotherapy, environmental services, and continuous observation by a patient safety lead. Medication recommendations have been have been provided and are as follows: Buspar 5MG twice a day for anxiety/calming effect/sleep. Please take your medications as prescribe and do not stop these medications without discussion with your prescribing physician. Anxiety The physician feels that some of your health problems are being caused by anxiety. Anxiety affects your health in many ways. Anxiety alone can cause palpitations, sweats, chest pains, abdominal pains, shortness of breath, and headaches. It contributes to ulcer disease, high blood pressure, irritable bowel syndrome, and has been shown to cause flare-ups of many other diseases. Anxiety is not a simple disorder to treat. If the anxiety is due to recent life stresses, you may simply need time to "work through" the changes. If the anxiety is due to an underlying unhappiness with yourself or due to psychiatric disturbance, professional help will be needed. Your physician can refer you for further help if needed. Anti-anxiety medication is occasionally given if the stress is acute or if you are having trouble sleeping. Chronic or frequent use of these medications is not a good idea because the body becomes reliant on it, preventing you from dealing with life's normal stresses. SUICIDAL IDEATION: Suicidal ideation is a common medical term for thoughts about suicide, which may be as detailed as a formulated plan, without the suicidal act itself. Although most people who undergo suicidal ideation do not commit suicide, some go on to make suicide attempts. The range of suicidal ideation varies greatly from fleeting to detailed planning, role playing, and unsuccessful attempts. While thoughts about suicide are common, most people do not carry out serious actions to commit suicide. Based upon your evaluation and discussion with you, we do not believe you are currently at risk to act upon your thoughts of suicide. You have agreed to return to the Emergency Department, at any time, if you feel inclined to act upon your suicidal thoughts. FOLLOW-UP CARE: You are being provided a prescription for medication that helps manage anxiety. You should take this medication as prescribed for effectiveness. You are to follow up with your local [facility] Primary Care Provider by the end of next week if possible and request referral for mental health services. Have also coordinated with a friend you identified to help with ensuring your home is safe (removal of firearms and pocket knives or large kitchen knives, assist with control of medication and administration). You have been provided the local mobile crisis numbers and can always utilize the [facility] Suicide Hotline/Crisis Line ( ). If you experience worsening or a significant change in your symptoms notify your physician immediately, utilize crisis numbers or return to the Emergency Department at any time for re- evaluation. Prescriptions: Buspirone HCl [Buspar 10 mg Tablet] 5 mg PO BID 14 Days #28 tablet Referrals: [facility] - Follow up as needed [facility] [Outside] - Follow up as needed [facility] [Outside] - Follow up as needed
[2019-09-29] MEDS ORDERED: INSULIN GLARGINE,HUM.REC.ANLOG 1,000 UNIT/10 ML VIAL SUBCUT SCH (23:45)
[2019-09-30 00:01] VITALS: BP 135/76
[2019-09-30 00:24] LABS: FREE T3 3.65 pg/mL (2.77-5.27); FREE T4 (FREE THYROXINE) 0.91 ng/dL (0.78-2.19)
[2019-09-30 00:38] LABS: THYROID STIMULATING HORMONE 2.97 uIU/mL (0.47-4.68)
[2019-09-30] MEDS: INSULIN LISPRO 100 UNIT/ML 3 ML VIAL SUBCUT SCH ×2 (08:13→10:38)
--- NOTE | 2019-09-30 15:18 | ER Document Report ---
Doctor's Note Notes: 09/30/19 15:10 Was instructed by mental health provider that patient is ready for discharge. He has a friend who has removed his firearms from his house and is removing the pocket knife as well. Patient is diabetic. I was instructed that patient is ready to be discharged by mental health. I went to evaluate the patient. He denies any fever, chills, shortness of breath, abdominal pain or additional symptoms. States he is not suicidal not homicidal no hallucinations. He is medically cleared. I will Discharge patient on BuSpar 5 mg twice daily as recommended by mental health. General: Acute, alert, oriented Heart: Regular rate rhythm no murmurs Lungs: Clear to auscultation bilaterally Psych: Normal A/P: Discharge home. Follow up with mental health.
--- NOTE | 2019-09-30 17:33 | PSYCHOLOGICAL NOTE ---
Psych Note - Psych Note Date seen by psych provider: 09/30/19 Time seen by psych provider: 11:06 - [id number] Psych Note: Patient is a 39 year old male who presented to the ED last evening via POV for increased anxiety to the point he had thoughts of hurting himself, had denied suicidal and homicidal ideation upon arrival to ED, said he had suicidal ideation the night before and had thought about using a knife or gun. Patient identified "I'm a little antsy from being cooped up in this room" when asked how he was doing today. Observed him standing in his room moving about. He denied being on any medications for anxiety or any other mental health issues. He denied being in therapy. He identified he is connected to the local [place] for Primary Care, was supposed to have an appointment this past Thursday, the schedule got mixed up, the provider was unable to make it. He denied current suicidal ideation. He acknowledged this is not the first time for increased anxiety followed by thought of hurting self, noted "it has happened in the past, usually in Summer, I cheney through it on my own, I'm tired of doing it on my own, I need help." Patient admitted to having 3 firearms and pocket knives in his home. He stated he resides alone. He denied having friends and family locally. He denied previous mental health hospitalizations. He reported diabetes as only medical history. Patient was alert and oriented to self, person, place, time and situation. Mood was euthymic with congruent affect. He denied current suicidal and homicidal ideation (he was worried enough about his Chiropractic appointment today he had the nurse call to cancel, shows future/forward/goal oriented thinking). He did not appear to be responding to internal stimuli as evidenced by fair eye contact, answering questions appropriately when addressed and carrying on dialogue conversation. Thought processes were linear and organized. Conversational speech was within normal limits for rate, tone and prosody. Intellectual abilities are estimated to be average. Insight, judgment and imp ulse control were fair as evidenced by seeking help on his own, being engaged in evaluation and allowing friend (patient noted friend came with him to the ED initially) in his life to be part of plan of care to help with safety measures in the home (friend to obtain possession of firearms and pocket knives). At 1404 spoke to patient's friend Sergeant Jesus Florez ([phone]) regarding plan of care. Obtained contact information from patient (security had to get his phone in order to get the number but patient was willing). He confirmed he came in with patient yesterday. He stated he was willing to be involved in plan of care which included removal of 3 firearms, pocket knives and any big kitchen knives, and being in control of medication/administration. He stated he knew patient had a firearm and had already told patient it would be best if he took it. He had not been aware there was more than 1 firearm until this clinician told him. At 1425 allowed patient to speak with Sergeant Jesus Florez on nurses station phone to inform him where firearms and pocket knives were. Patient informed him his apartment door was unlocked. Patient stated the AR15 was just inside the door to the left against the wall, 1 pistol was in his bedroom near the top of the bed under the pillow where he keeps it and his final pistol was in his van which is here at the hospital. Patient told him a pocket knife was on the table to the right just as you enter the door and the other pocket knife was here in ED (on inventory sheet). He noted his van keys were here in his belongings. Sergeant Florez called back after getting to the house and locating everything except the pocket knife so he spoke to patient again and was able to find it. He also came to the ED where security gave him the pocket knife that had been on inventory sheet and the gun from patient's van. Once all the weapons were confiscated by friend and he confirmed it was able to move forward with discharge. He also agreed to only provide a week worth of medication to patient at a time. He was also made aware [facility] and [facility]. Clinical Presentation: Anxiety Suicidal Ideation due to uncontrolled anxiety Medication recommendations made by the psychiatric medication provider Dr. Caitlyn PEREZ., includes: Add Buspar 5MG twice a day for anxiety/calming effect/sleep Impression/Plan: Patient is cleared from acute psychiatric services. He denied current suicidal ideation. He admitted he gets anxiety which get so bad he becomes suicidal, this was not the first time he's felt this way but has previously battled through it on his own, is tired of doing it on his own and said he wanted/needs help. A prescription was provided to help manage anxiety (nonaddictive). His friend Sergeant Florez was included in plan of care and actively involved in obtaining weapons (firearms, pocket knives) from patient's home, van and personal belongings in ED, as well as being in charge of medications/administration. Provided patient with the outpatient MH resource sheet which highlighted both [facility] numbers and listed the [place] Crisis Number for crisis/talk therapy/linkage. Also documented to follow up with outpatient Primary Care provider by the end of next week if possible, to take his ED d ischarge paperwork when he goes and to request referral for MH services via [place] [facility] provider. Friend/Sergeant Florez made aware of the need for this follow and referral. Consulted with Dr. Ricketts regarding the management and care of patient. ED Physician in agreement with recommendations.
[2019-09-30] MEDS ORDERED: BUSPIRONE HCL 10 MG TABLET PO SCH (18:00)
== END 2019-09-30 15:39 | disposition home or self-care (01) ==
LOC: ER 18:30
DX: F41.9 Anxiety disorder, unspecified (principal); R45.851 Suicidal ideations; Z56.89 Other problems related to employment; E11.9 Type 2 diabetes mellitus without complications; Z79.4 Long term (current) use of insulin
CPT/HCPCS: 93005; 99284; 36415; 84439; 82962; 80307 ×4; 84443; 85025; 80053; 81001; 84481; 93010; J1815 ×2